=== PATIENT | female | born 1950 | race Caucasian/White ===

== ENCOUNTER 2017-03-20 09:15 | Day surgery (SDC) | payer MEDICARE, BC ==
[2017-03-20] MEDS ORDERED: Dextrose 5%-Lactated Ringers 1,000 ML IV SCH (09:45)
[2017-03-20] MEDS ORDERED: Glycopyrrolate 0.2 MG/ML 2 ML SDV IVPUSH ONE (10:30)
[2017-03-20] MEDS ORDERED: fentaNYL 100 MCG/2 ML SDV ONE (10:48)
[2017-03-20] MEDS ORDERED: Midazolam 1 MG/ML 2 ML SDV ONE (10:48)
[2017-03-20] MEDS ORDERED: Propofol 200 MG/20 ML SDV ONE (10:48)
--- NOTE | 2017-03-23 12:58 | OR ---
DATE OF PROCEDURE: 03/20/2017 PREOPERATIVE DIAGNOSIS: Emerging chronic cough with laparoscopic adjustable gastric band in place. POSTOPERATIVE DIAGNOSIS: Progressive chronic cough associated with laparoscopic gastric band in place, complicated by; 1. Esophageal dilation with retained bile and food in esophagus and ulcerated esophagitis. 2. Mild antral gastritis. OPERATIVE PROCEDURES: Esophagogastroduodenoscopy with; 1. Biopsies of antrum for CLOtest. 2. Biopsies of esophagogastric junction for histologic evaluation. ANESTHESIA: IV sedation. INDICATION FOR PROCEDURE: The patient is status post laparoscopic adjustable gastric band placement recently. She has had some occasional symptoms of reflux, primarily worsening chronic cough. All of the fluid has been removed from the band, and the patient is to undergo an upper endoscopy at this point to evaluate the situation in terms of likely esophageal dilation above the band. Potential risks including bleeding, aspiration of esophageal contents, perforation and such were reviewed, and the patient wishes to proceed. DETAILS OF PROCEDURE: The patient was taken to the operating room and placed in a left lateral decubitus position. IV sedation was administered, after which the upper GI endoscope was passed orally and into the esophagus. Retained bilious material as well as some scattered solid stool was then found in the esophagus, which was otherwise generally quite dilated. This fluid was then evacuated via the endoscope. The patient was also noted to have quite a bit of friability and redness along with edema at the esophagogastric junction. The location of the band appeared to be appropriate, and there was no mechanical obstruction. The imprint of the band was wide open and easily passed with the scope. Apart from that, the retroflex view revealed no complications such as erosions related to the band. There was some mild redness in the prepyloric area. The pyloric channel and duodenum were unremarkable. At this point, biopsies were obtained from the antrum and sent for CLOtest for H. pylori. Multiple biopsies were then obtained from esophagogastric junction for evaluation of the degree of inflammation as well as rule out problems such as Liev esophagus as there was some upward extension of the columnar mucosa above the upper gastric folds. Minimal bleeding from the biopsy sites was seen and the procedure then concluded. The situation was discussed with the patient and postoperatively. In the long-term, the patient would be a significant risk for pulmonary complications related to the band placement and with the band now being deflated, and her tendency to ingest more of a liquid- type diet will also result in a significant weight regain. Due to both of these factors, the best course would likely be removal of band and conversion to a Oscar-en-Y gastric bypass. They have a trip coming up in April and would like to try to delay that treatment if that would be possible. She will be instructed to sleep with the head elevated somewhat as well as avoid solid food intake, especially for 2 hours or so prior to going to bed to try and minimize problems with aspiration of esophageal contents. We will see her back in the first week of May when they get back from the trip and see how she is doing at that point and decide on the treatment options thereafter. Bogdan Corea MD /[id number]
== END 2017-03-20 13:10 | disposition home or self-care (01) ==
LOC: JP.SDS 09:15
PROVIDERS: ATTEND Surgery
DX: K29.50 Unspecified chronic gastritis without bleeding (principal); K22.10 Ulcer of esophagus without bleeding; K22.8 Other specified diseases of esophagus; T18.128A Food in esophagus causing other injury, initial encounter; E66.01 Morbid (severe) obesity due to excess calories; I10 Essential (primary) hypertension; E78.5 Hyperlipidemia, unspecified; F32.9 Major depressive disorder, single episode, unspecified; J45.909 Unspecified asthma, uncomplicated; E55.9 Vitamin D deficiency, unspecified; Z90.710 Acquired absence of both cervix and uterus; Z98.890 Other specified postprocedural states; Z88.1 Allergy status to other antibiotic agents; Z98.84 Bariatric surgery status; Z88.2 Allergy status to sulfonamides; Z88.8 Allergy status to other drugs, medicaments and biological substances; Z68.39 Body mass index [BMI] 39.0-39.9, adult; X58.XXXA Exposure to other specified factors, initial encounter
CPT/HCPCS: 43239; 87081; J2250; J2704; J3010; J7042; 88305; 88312; J3490

== ENCOUNTER 2017-06-08 06:27 | Inpatient (IN) | payer MEDICARE, BC ==
[~2017-06-08 06:27] MED LIST: Scopolamine 1.5 MG Transdermal Patch TOP SCH
[2017-06-08] MEDS ORDERED: Dextrose 5%-Lactated Ringers 1,000 ML IV SCH (06:30)
[2017-06-08] MEDS ORDERED: Acetaminophen 500 MG Tab PO ONE (06:34)
[2017-06-08] MEDS ORDERED: Celecoxib 200 MG Cap PO ONE ×2 (06:37→07:30)
[2017-06-08] MEDS ORDERED: cefOXitin 2 GM in Sodium Chloride 0.9% 50 ML IV ONE (06:37)
[2017-06-08] MEDS ORDERED: Gabapentin 300 MG Cap PO ONE (06:39)
[2017-06-08] MEDS ORDERED: cefOXitin 2 GM Vial ONE (07:04)
[2017-06-08] MEDS ORDERED: Dexamethasone 4 MG/ML SDV ONE (07:12)
[2017-06-08] MEDS ORDERED: Propofol 200 MG/20 ML SDV ONE (07:12)
[2017-06-08] MEDS ORDERED: Neostigmine Methylsulfate 1 MG/ML 5 ML Syringe ONE (07:12)
[2017-06-08] MEDS ORDERED: Ondansetron 4 MG/2 ML SDV ONE (07:12)
[2017-06-08] MEDS ORDERED: Rocuronium 50 MG/5 ML Vial ONE (07:12)
[2017-06-08] MEDS ORDERED: Succinylcholine/Normal Saline 200 MG/10 ML Syringe ONE (07:12)
[2017-06-08] MEDS ORDERED: Lactated Ringers 1,000 ML ONE (07:14)
[2017-06-08] MEDS ORDERED: Ketamine 500 MG/5 ML MDV IV ONE (08:15)
[2017-06-08] MEDS ORDERED: Lidocaine 2% 100 MG/5 ML Syringe IVPUSH ONE (08:15)
[2017-06-08] MEDS: cefOXitin 2 GM in Sodium Chloride 0.9% 50 ML IV ONE ×2 (08:17→10:01)
[2017-06-08] MEDS: Ropivacaine 54 ML, Dexamethasone 8 MG, EPINEPHrine 0.4 MG, Sodium Chloride 0.9% 23.6 ML NERVRT ONE ×8 (08:18→14:17)
[2017-06-08] MEDS ORDERED: fentaNYL 100 MCG/2 ML SDV ONE (09:26)
[2017-06-08] MEDS ORDERED: hydrOXYzine HCl 100 MG/2 ML SDV IM ONE (10:43)
[2017-06-08] MEDS ORDERED: fentaNYL 100 MCG/2 ML SDV IVPUSH ONE (11:13)
[2017-06-08] MEDS ORDERED: diphenhydrAMINE 50 MG/ML SDV IVPUSH PRN (13:00)
[2017-06-08] MEDS ORDERED: Ondansetron 4 MG/2 ML SDV IVPUSH PRN (13:00)
[2017-06-08] MEDS ORDERED: Metoclopramide 10 MG/2 ML SDV IVPUSH PRN (13:00)
[2017-06-08] MEDS ORDERED: Labetalol 20 MG/4 ML Syringe IVPUSH PRN (13:00)
[2017-06-08] MEDS: Dextrose 5%-Lactated Ringers 1,000 ML IV SCH (13:04)
[2017-06-08] MEDS: hydrOXYzine HCl 100 MG/2 ML SDV IM PRN (13:08)
[2017-06-08] MEDS: Lidocaine 0.4%/D5W 2 GM/500 ML BAG IV SCH (13:13)
[2017-06-08] MEDS: cefOXitin 2 GM in Sodium Chloride 0.9% 50 ML IV SCH ×2 (14:05→21:04)
[2017-06-08] MEDS: Acetaminophen Soln 650 MG/20.3 ML UD Cup PO SCH ×2 (15:16→21:04)
[2017-06-08] MEDS: Pantoprazole 40 MG Vial IVPUSH SCH (15:17)
[2017-06-08] MEDS ORDERED: MVI, Adult with Vitamin K 10 ML, Thiamine 200 MG, Chromium/Copper/Mang/Selen/Zn 1 ML in... IV SCH ×4 (16:00)
[2017-06-08] MEDS: Heparin Sodium 5,000 Units/ML Vial SUBCUT SCH (18:07)
[2017-06-08] MEDS: ClonazePAM 0.5 MG Tab PO SCH (21:08)
[2017-06-08] MEDS: diphenhydrAMINE 25 MG/10 ML CUP PO SCH (21:09)
[2017-06-09] MEDS: Dextrose 5%-Lactated Ringers 1,000 ML IV SCH ×2 (00:53→06:58)
[2017-06-09] MEDS: Lidocaine 0.4%/D5W 2 GM/500 ML BAG IV SCH (00:53)
[2017-06-09] MEDS: cefOXitin 2 GM in Sodium Chloride 0.9% 50 ML IV SCH ×2 (02:09→08:15)
[2017-06-09] MEDS: Acetaminophen Soln 650 MG/20.3 ML UD Cup PO SCH ×4 (02:09→21:13)
[2017-06-09] MEDS ORDERED: Iohexol 647 MG/ML 50 ML SDV PO STA (03:56)
[2017-06-09] MEDS: hydrOXYzine HCl 100 MG/2 ML SDV IM PRN ×2 (04:52→11:47)
[2017-06-09] MEDS: Heparin Sodium 5,000 Units/ML Vial SUBCUT SCH ×2 (05:01→17:09)
[2017-06-09] MEDS: Celecoxib 200 MG Cap PO SCH (08:14)
[2017-06-09] MEDS ORDERED: Dextrose 5%-Lactated Ringers 1,000 ML IV SCH (08:30)
--- NOTE | 2017-06-09 08:58 | CR ---
Limited upper GI The patient is status post Oscar-en-Y gastric bypass. There are left upper quadrant drains in place. T here is no extravasation of contrast. The gastric pouch empties readily into a nondilated Oscar limb. No complications are evident. Impression: 1. Status post Oscar-en-Y gastric bypass without evidence for complication.
[2017-06-09] MEDS: SCOPOLAMINE PATCH CHECK TOP SCH (09:14)
--- NOTE | 2017-06-09 11:08 | PCM.SURGPN ---
- General Info Date of Service: 06/09/17 Date of Surgery/Procedure: 06/08/17 POD#: 1 Post-Op Diagnosis: S/P laparoscopic LAP band removal with conversion to Oscar-en- Y Admission Diagnosis/Problem: Abdominal discomfort Functional Status: Reports: Pain Controlled, Tolerating Diet, Ambulating, Urinating - Review of Systems General: Reports: No Symptoms Pulmonary: Reports: No Symptoms Cardiovascular: Reports: No Symptoms Gastrointestinal: Reports: Abdominal Pain, Other (No nausea or vomiting. Passing some gas ) Genitourinary: Reports: No Symptoms Musculoskeletal: Reports: No Symptoms Skin: Reports: No Symptoms Neurological: Reports: No Symptoms Psychiatric: Reports: No Symptoms - Patient Data Vitals - Most Recent: Last Vital Signs Temp 37.1 C 06/09/17 10:48 Pulse 56 L 06/09/17 10:48 Resp 16 06/09/17 10:48 BP 117/73 06/09/17 10:48 Pulse Ox 97 06/09/17 10:48 Weight - Most Recent: 106.957 kg I&O - Last 24 Hours: Intake & Output 06/08/17 06/09/17 06/09/17 22:59 06:59 14:59 Intake Total 1116 2398 262 Output Total 610 1705 1275 Balance 506 693 -1013 Med Orders - Current: Current Medications Acetaminophen (Tylenol) 650 mg PO Q6H [facility] Last Admin: 06/09/17 07:24 Dose: 650 mg Celecoxib (Celebrex) 200 mg PO DAILY@0800 [facility] Last Admin: 06/09/17 08:14 Dose: 200 mg Clonazepam (Klonopin) 0.5 - 1 mg PO BEDTIME [facility] Last Admin: 06/08/17 21:08 Dose: 0.5 mg Cyanocobalamin (Vitamin B12) 1,000 mcg IM ONETIME ONE Stop: 06/10/17 09:01 Diphenhydramine HCl (Benadryl) 25 - 50 mg IVPUSH Q4H PRN PRN Reason: ITCHING Diphenhydramine HCl (Benadryl) 0 mg PO BEDTIME [facility] Last Admin: 06/08/17 21:09 Dose: 25 mg Heparin Sodium (Porcine) (Heparin Sodium) 5,000 units SUBCUT Q12H [facility] Last Admin: 06/09/17 05:01 Dose: 5,000 units Hydroxyzine HCl (Vistaril) 75 - 100 mg IM Q4H PRN PRN Reason: pain Last Admin: 06/09/17 04:52 Dose: 100 mg Dextrose/Lactated Ringer's (Dextrose 5%-Lactated Ringers) 1,000 mls @ 100 mls/ hr IV ASDIRECTED [facility] Multivitamins/Minerals 10 ml/Thiamine HCl 200 mg/ Chromium/Copper/Manganese/ Seleni/Zn 1 ml/ Dextrose/Lactated Ringer's 1,013 mls @ 100 mls/hr IV DAILY@ 1600 [facility] Labetalol HCl (Normodyne) 5 - 15 mg IVPUSH Q1H PRN PRN Reason: SBP over 160 OR DBP over 95 Metoclopramide HCl (Reglan) 10 mg IVPUSH Q6H PRN PRN Reason: NAUSEA NOT CONTROL BY ZOFRAN Miscellaneous Information (Remove Patch) 1 ea TRDERM ONETIME ONE Stop: 06/10/17 10:01 Scopolamine Patch (Check) 1 each TOP DAILY [facility] Stop: 06/10/17 13:01 Last Admin: 06/09/17 09:14 Dose: Not Given Ondansetron HCl (Zofran) 4 mg IVPUSH Q4H PRN PRN Reason: Nausea/Vomiting Last Admin: 06/08/17 14:40 Dose: 4 mg Pantoprazole Sodium (Protonix Iv) 40 mg IVPUSH Q24H [facility] Last Admin: 06/08/17 15:17 Dose: 40 mg Scopolamine (Transderm-Scop) 1.5 mg TOP Q72H [facility] Stop: 06/10/17 10:00 Last Admin: 06/08/17 07:20 Dose: 1.5 mg Discontinued Medications Acetaminophen (Tylenol Extra Strength) 1,000 mg PO ONETIME ONE Stop: 06/08/17 06:35 Last Admin: 06/08/17 07:20 Dose: 1,000 mg Cefoxitin Sodium (Mefoxin) Confirm Administered Dose 2 gm .ROUTE .STK-MED ONE Stop: 06/08/17 07:05 Last Admin: 06/08/17 08:49 Dose: 2 gm Celecoxib (Celebrex) 200 mg PO ONETIME ONE Stop: 06/08/17 06:38 Last Admin: 06/08/17 07:20 Dose: 200 mg Celecoxib (Celebrex) 200 mg PO ONETIME ONE Stop: 06/08/17 07:31 Last Admin: 06/08/17 08:22 Dose: Not Given Ropivacaine 54 ml/Dexamethasone 8 mg/Epinephrine HCl 0.4 mg/ Sodium Chloride 23.6 ml 0 ml NERVRT ONETIME ONE Stop: 06/08/17 08:16 Last Admin: 06/08/17 14:17 Dose: Not Given Dexamethasone (Dexamethasone) Confirm Administered Dose 4 mg .ROUTE .STK-MED ONE Stop: 06/08/17 07:13 Fentanyl (Sublimaze) Confirm Administered Dose 100 mcg .ROUTE .STK-MED ONE Stop: 06/08/17 09:27 Fentanyl (Sublimaze) 100 mcg IVPUSH ONETIME ONE Stop: 06/08/17 11:14 Last Admin: 06/08/17 11:18 Dose: 100 mcg Fentanyl Citrate (Fentanyl) Confirm Administered Dose 500 mcg .ROUTE .STK-MED ONE Stop: 06/08/17 07:15 Gabapentin (Neurontin) 300 mg PO ONETIME ONE Stop: 06/08/17 06:40 Last Admin: 06/08/17 07:24 Dose: Not Given Glycopyrrolate () Confirm Administered Dose 1 mg .ROUTE .STK-MED ONE Stop: 06/08/17 07:13 Hydroxyzine HCl (Vistaril) 100 mg IM ONETIME ONE Stop: 06/08/17 10:44 Last Admin: 06/08/17 10:47 Dose: 100 mg Lidocaine HCl/Dextrose (Lidocaine 2 Gm/D5w 500 Ml) 2 gm in 500 mls @ 30 mls/hr IV .[id number] [facility] PRN Reason: 2 MG/MIN Stop: 06/09/17 10:00 Last Admin: 06/09/17 00:53 Dose: 2 mg/min, 30 mls/hr Ketamine HCl 100 mg/ Sodium (Chloride) 100 mls @ 17.44 mls/hr IV ASDIRECTED [facility] PRN Reason: 5 MCG/KG/MIN Stop: 06/08/17 10:15 Dextrose/Lactated Ringer's (Dextrose 5%-Lactated Ringers) 1,000 mls @ 100 mls/ hr IV ASDIRECTED [facility] Last Admin: 06/08/17 08:21 Dose: 100 mls/hr Cefoxitin Sodium 2 gm/ Sodium (Chloride) 50 mls @ 100 mls/hr IV ONETIME ONE Stop: 06/08/17 07:44 Last Admin: 06/08/17 10:01 Dose: Not Given Lactated Ringer's (Ringers, Lactated) Confirm Administered Dose 1,000 mls @ as directed .ROUTE .STK-MED ONE Stop: 06/08/17 07:15 Dextrose/Lactated Ringer's (Dextrose 5%-Lactated Ringers) 1,000 mls @ 175 mls/ hr IV ASDIRECTED [facility] Last Admin: 06/09/17 06:58 Dose: 100 mls/hr Multivitamins/Minerals 10 ml/Thiamine HCl 200 mg/ Chromium/Copper/Manganese/ Seleni/Zn 1 ml/ Dextrose/Lactated Ringer's 1,013 mls @ 175 mls/hr IV DAILY@ 1600 [facility] Last Admin: 06/08/17 18:07 Dose: 175 mls/hr Cefoxitin Sodium 2 gm/ Sodium (Chloride) 50 mls @ 100 mls/hr IV Q6H [facility] Stop: 06/09/17 08:29 Last Admin: 06/09/17 08:15 Dose: 100 mls/hr Iohexol (Omnipaque-300) 50 ml PO .ASDIRECTED [facility] Stop: 06/09/17 03:57 Last Admin: 06/09/17 04:10 Dose: 50 ml Ketamine HCl (Ketalar) 29 mg IV ONETIME ONE Stop: 06/08/17 08:16 Last Admin: 06/08/17 21:00 Dose: Not Given Lidocaine HCl (Xylocaine 2%) 118 mg IVPUSH ONETIME ONE Stop: 06/08/17 08:16 Last Admin: 06/08/17 21:00 Dose: Not Given Neostigmine Methylsulfate (Neostigmine) Confirm Administered Dose 5 mg .ROUTE .STK-MED ONE Stop: 06/08/17 07:13 Ondansetron HCl (Zofran) Confirm Administered Dose 4 mg .ROUTE .STK-MED ONE Stop: 06/08/17 07:13 Propofol (Diprivan 20 Ml) Confirm Administered Dose 200 mg .ROUTE .STK-MED ONE Stop: 06/08/17 07:13 Rocuronium [place] (Zemuron) Confirm Administered Dose 50 mg .ROUTE .STK-MED ONE Stop: 06/08/17 07:13 Succinylcholine Chloride (Succinylcholine In Ns Pf) Confirm Administered Dose 200 mg .ROUTE .STK-MED ONE Stop: 06/08/17 07:13 - Exam Wound/Incisions: Healing Well General: Alert, Oriented, Cooperative, No Acute Distress Lungs: Clear to Auscultation, Normal Respiratory Effort Cardiovascular: Regular Rate, Regular Rhythm GI/Abdominal Exam: Normal Bowel Sounds (few and mild), Soft, No Distention, Tender Skin: Warm Neurological: No New Focal Deficit Psy/Mental Status: Alert, Normal Affect, Normal Mood - Problem List Review Problem List Initiated/Reviewed/Updated: Yes - My Orders Last 24 Hours: Active Orders 24 hr Category Date Time Status Patient Status [ADT] Routine ADT 06/08/17 12:27 Active Ambulate [RC] ASDIRECTED Care 06/08/17 17:00 Active Cardiac Monitoring Discontinue [RC] Click to Edit Care 06/09/17 09:00 Inactive Communication Order [RC] Q4H Care 06/08/17 15:00 Active Communication Order [RC] ROUTINE Care 06/08/17 12:27 Active Drain Management [RC] ASDIRECTED Care 06/08/17 12:27 Active Head of Bed Elevation [RC] CONTINUOUS Care 06/08/17 12:27 Active Insert Urinary Catheter [OM.PC] Per Unit Routine Care 06/08/17 12:27 Ordered Intake and Output [RC] Q12HR Care 06/08/17 18:00 Active May Shower [RC] ASDIRECTED Care 06/09/17 08:19 Active Notify Provider Intake and Out [RC] ASDIRECTED Care 06/08/17 12:27 Active Notify Provider [RC] PRN Care 06/08/17 12:27 Active Oxygen Therapy [RC] ASDIRECTED Care 06/08/17 12:27 Active Pneumonia Education [RC] UPON Care 06/08/17 12:27 Active RT BiPAP/CPAP [RC] ASDIRECTED Care 06/08/17 12:27 Active RT Incentive Spirometry [RC] Q1HWA Care 06/08/17 12:27 Active Turn, Cough, Deep Breathe [RC] Q1HWA Care 06/08/17 12:27 Active Up to Chair [RC] TIDMEALS Care 06/08/17 17:00 Active Vital Signs [RC] Q4H Care 06/08/17 12:27 Active Consult to Bariatric Services [CONS] Routine Cons 06/08/17 12:27 Active Consult to Marketing Research Coordinator [CONS] Routine Cons 06/08/17 12:27 Active Consult to Pharmacy [CONS] Routine Cons 06/08/17 12:27 Active Respiratory Care Assess and Treatment [CONS] Routine Cons 06/08/17 12:27 Active Bariatric Diet [DIET] Diet 06/08/17 Dinner Active Bariatric Diet [DIET] Diet 06/09/17 Lunch Active Acetaminophen [Tylenol] Med 06/08/17 14:00 Active 650 mg PO Q6H Celecoxib [CeleBREX] Med 06/09/17 08:00 Active 200 mg PO DAILY@0800 ClonazePAM [KlonoPIN] Med 06/08/17 21:00 Active 0.5 - 1 mg PO BEDTIME Cyanocobalamin (Vitamin B12) [Vitamin B12] Med 06/10/17 09:00 Once 1,000 mcg IM ONETIME ONE Dextrose 5%-Lactated Ringers 1,000 ml Med 06/09/17 08:30 Active IV ASDIRECTED Heparin Sodium Med 06/08/17 18:00 Active 5,000 units SUBCUT Q12H Labetalol [Normodyne] Med 06/08/17 13:00 Active 5 - 15 mg IVPUSH Q1H PRN MVI, Adult with Vitamin K [Infuvite Adult] 10 ml Med 06/09/17 16:00 Active Thiamine [Vitamin B-1] 200 mg Chromium/Copper/Christopher/Selen/Zn [Multitrace-5 Concentrate ] 1 ml Dextrose 5%-Lactated Ringers 1,000 ml IV DAILY@1600 Metoclopramide [Reglan] Med 06/08/17 13:00 Active 10 mg IVPUSH Q6H PRN Non-Formulary Medication [NF Drug] Med 06/08/17 13:00 Active 1 each TOP DAILY Ondansetron [Zofran] Med 06/08/17 13:00 Active 4 mg IVPUSH Q4H PRN Pantoprazole [ProTONIX IV] Med 06/08/17 14:00 Active 40 mg IVPUSH Q24H Remove Patch Med 06/10/17 10:00 Once 1 ea TRDERM ONETIME ONE diphenhydrAMINE [Benadryl] Med 06/08/17 21:00 Active 0 mg PO BEDTIME diphenhydrAMINE [Benadryl] Med 06/08/17 13:00 Active 25 - 50 mg IVPUSH Q4H PRN hydrOXYzine HCl [Vistaril] Med 06/08/17 13:00 Active 75 - 100 mg IM Q4H PRN Abdominal Binder [OM.PC] Routine Oth 06/08/17 12:27 Ordered Oral Care [OM.PC] BID Oth 06/08/17 12:30 Ordered Oral Care [OM.PC] BID Oth 06/09/17 12:30 Ordered PT Screening [OM.PC] Routine Oth 06/08/17 12:27 Active Remove Dressing [OM.PC] Routine Oth 06/09/17 08:19 Ordered Sequential Compression Device [OM.PC] Routine Oth 06/08/17 12:27 Ordered Specialty Bed [OM.PC] Routine Oth 06/08/17 12:27 Ordered Resuscitation Status Routine Resus Stat 06/08/17 12:25 Ordered Medication Orders Acetaminophen (Tylenol) 650 mg PO Q6H [facility] Last Admin: 06/09/17 07:24 Dose: 650 mg Admin: 06/09/17 02:09 Dose: 650 mg Admin: 06/08/17 21:04 Dose: 650 mg Admin: 06/08/17 15:16 Dose: 650 mg Celecoxib (Celebrex) 200 mg PO DAILY@0800 [facility] Last Admin: 06/09/17 08:14 Dose: 200 mg Clonazepam (Klonopin) 0.5 - 1 mg PO BEDTIME [facility] Last Admin: 06/08/17 21:08 Dose: 0.5 mg Cyanocobalamin (Vitamin B12) 1,000 mcg IM ONETIME ONE Stop: 06/10/17 09:01 Diphenhydramine HCl (Benadryl) 25 - 50 mg IVPUSH Q4H PRN PRN Reason: ITCHING Diphenhydramine HCl (Benadryl) 0 mg PO BEDTIME [facility] Last Admin: 06/08/17 21:09 Dose: 25 mg Heparin Sodium (Porcine) (Heparin Sodium) 5,000 units SUBCUT Q12H [facility] Last Admin: 06/09/17 05:01 Dose: 5,000 units Admin: 06/08/17 18:07 Dose: 5,000 units Hydroxyzine HCl (Vistaril) 75 - 100 mg IM Q4H PRN PRN Reason: pain Last Admin: 06/09/17 04:52 Dose: 100 mg Admin: 06/08/17 13:08 Dose: 100 mg Dextrose/Lactated Ringer's (Dextrose 5%-Lactated Ringers) 1,000 mls @ 100 mls/ hr IV ASDIRECTED [facility] Multivitamins/Minerals 10 ml/Thiamine HCl 200 mg/ Chromium/Copper/Manganese/ Seleni/Zn 1 ml/ Dextrose/Lactated Ringer's 1,013 mls @ 100 mls/hr IV DAILY@ 1600 [facility] Labetalol HCl (Normodyne) 5 - 15 mg IVPUSH Q1H PRN PRN Reason: SBP over 160 OR DBP over 95 Metoclopramide HCl (Reglan) 10 mg IVPUSH Q6H PRN PRN Reason: NAUSEA NOT CONTROL BY ZOFRAN Miscellaneous Information (Remove Patch) 1 ea TRDERM ONETIME ONE Stop: 06/10/17 10:01 Scopolamine Patch (Check) 1 each TOP DAILY [facility] Stop: 06/10/17 13:01 Last Admin: 06/09/17 09:14 Dose: Ondansetron HCl (Zofran) 4 mg IVPUSH Q4H PRN PRN Reason: Nausea/Vomiting Last Admin: 06/08/17 14:40 Dose: 4 mg Pantoprazole Sodium (Protonix Iv) 40 mg IVPUSH Q24H [facility] Last Admin: 06/08/17 15:17 Dose: 40 mg Scopolamine (Transderm-Scop) 1.5 mg TOP Q72H [facility] Stop: 06/10/17 10:00 Last Admin: 06/08/17 07:20 Dose: 1.5 mg - Plan Plan (Free Text/Narrative):: Sylvia Bell is a 66 year old female with a past medical history of hypothyroidism, restless leg syndrome and hypercholesterolemia with a past surgical history for laparoscopic gastric band placement who presents with weight gain and abdominal pain. She is now POD #1 laparoscopic removal of gastric band with conversion to Oscar-En-Y. She is doing well except for a headache that she currently rates at a 6/10. However, there are no red flag signs at this time. She is tolerating her step 2 diet well without nausea or vomiting. She did have some mild bowel sounds this morning and stated that she passed some gas as well. Her abdominal pain is mild. Will up the dose of tylenol to 1000mg Q6. She had no further concerns or questions at this time. # Abdominal pain- related to her surgery and incisions. She denied any shoulder pain or severe abdominal pain. She states that she does not feel distended. - Continue Tylenol 1000 mg Po Q6hr PRN - Continue ENERGY protocol - Will continue to monitor # Headache- the patient is complaining of a headache. She does feel like her neck is tight. She denies caffeine consumption outside the hospital as well as any chronic headache issues. When she gets headaches in the past it is usually well controlled with tylenol and ibuprofen. Currently she rates her headache at a 6/10 and localized to her occiput. She does NOT describe this the worst headache of her life. She denies any nausea/vomiting, fevers, diplopia or confusion. She is intact neurologically. Most likely this a tension type headache. - Will up her tylenol dose to 1000 mg Q6 - PRN Visteril - PRN Flexeril E.N.E.R.G.Y protocol - D/c lidocaine today - D/c scopolomine patch today - Continue 300mg POD TID gabapentin - Continue Celebrex 200 mg - Continue IV Protonix 40mg Q24hrs - 1000 mcg B12 - Continue Infuvite - Dietary consulted, thank you! Chronic issues: # Restless leg syndrome - Continue home does Klonopin at bedtime # Hypercholesterolemia - continue home dose simvastatin # Hypothyroidism -continue home dose Levothyroxin VTE PPX- 5000 units heparin Q12 hours. Pt advised to continue moving around. Pneumonia PPX- Pt advised to walk around and use incentive spirometry 10 times per hour Code status: full Fluids: 100 ml/hr Diet: Advance pt to step 2 diet Nausea: Zofran Q4hr or Regland Q6hr PRN Dispo: The patient will most likely go home tomorrow if she continues to progress. This chart was scribed for Dr. Corea by: Malachi Ndiaye, MS3 Pg# [phone]
[2017-06-09] MEDS: Pantoprazole 40 MG Vial IVPUSH SCH (13:52)
[2017-06-09] MEDS ORDERED: MVI, Adult with Vitamin K 10 ML, Thiamine 200 MG, Chromium/Copper/Mang/Selen/Zn 1 ML in... IV SCH ×4 (16:00)
--- NOTE | 2017-06-09 16:12 | PN ---
DATE OF SERVICE: 06/09/2017 The patient is postop day #1 from Oscar-en-Y laparoscopic gastric band converted to Oscar-en-Y gastric bypass. Clinically, she has had no major problems. Oral intake has been a little bit slow. Upper GI x-ray looks good. We will go up to step-2 diet without solids today as she is should be someone who probably stays on a liquid diet at least 2 weeks given this as a revisional-type procedure. Otherwise, we will restart her Synthroid and maximize activity, work with pulmonary toilet. Bogdan Corea MD /[id number]
[2017-06-09] MEDS: diphenhydrAMINE 25 MG/10 ML CUP PO SCH (21:17)
[2017-06-09] MEDS: ClonazePAM 0.5 MG Tab PO SCH (21:17)
[2017-06-10] MEDS: Acetaminophen Soln 650 MG/20.3 ML UD Cup PO SCH ×2 (03:49→07:56)
[2017-06-10] MEDS: Heparin Sodium 5,000 Units/ML Vial SUBCUT SCH (05:13)
[2017-06-10] MEDS ORDERED: LEVOTHYROXINE 112 MCG PO SCH (07:30)
[2017-06-10] MEDS ORDERED: Pantoprazole 40 MG Delayed-Release Granules 1 Packet PO SCH (07:30)
--- NOTE | 2017-06-10 07:53 | PCM.DCSUM1 ---
Discharge Summary - Hospital Course Brief History: Sylvia Bell is a 66 year old female with a past medical history of hypothyroidism, restless leg syndrome and hypercholesterolemia with a past surgical history for laparoscopic gastric band placement who presents with weight gain and abdominal pain. She is now POD #2 laparoscopic removal of gastric band with conversion to Oscar-En-Y. - Discharge Data Discharge Date: 06/10/17 Discharge Disposition: Home, Self-Care 01 Condition: Good - Patient Summary/Data Operative Procedure(s) Performed: Gastric band removal with Oscar-en-y conversion Complications: Headache Consults: Consultations 06/08/17 12:27 Consult to Bariatric Services [CONS] Routine Comment: Consult to Business Development Officer [CONS] Routine Comment: Physician Instructions: Quantity: Consult to Pharmacy [CONS] Routine Comment: Physician Instructions: Quantity: Respiratory Care Assess and Treatment [CONS] Routine Comment: Physician Instructions: Post-Op Pneumonia Prevention - Patient Instructions Diet: Drink 8-10+ Glasses/Day Diet, Other: Step 2 Gastric Bypass Diet with NO CEREAL until Thursday-June 23, 2017 Activity: No Lifting Over 10 Pounds (for 2 weeks ) Activity, Other: Walk 6 times inside your home Driving: Do Not Drive (for 1 week ) Showering/Bathing: May Shower Wound/Incision Care: Keep Operative Site/Wound Site Clean and Dry Notify Provider of: Fever, Increased Pain, Nausea and/or Vomiting Other/Special Instructions: Use incentive inspirometer 10 times every hour while awake for 1 week. Write down everything you eat and drink and bring to clinic appointment - Discharge Plan Prescriptions/Med Rec: Magnesium Hydroxide [Milk of Magnesia] 30 ml PO DAILY PRN #2 ml PRN Reason: Constipation Ondansetron [Zofran ODT] 4 mg PO Q6H PRN #30 tab.dis PRN Reason: Nausea Home Medications: Home Meds Acetaminophen [Tylenol Extra Strength] 1,000 mg PO Q6HR PRN 03/19/17 [History] ClonazePAM [KlonoPIN] 0.5 - 1 mg PO BEDTIME PRN 03/19/17 [History] Doxylamine Succinate [Unisom] 25 mg PO BEDTIME PRN 03/19/17 [History] Ezetimibe/Simvastatin [Vytorin 10-20 MG] 1 tab PO DAILY 03/19/17 [History] Fluticasone Propionate [Flonase] 2 sprays BINA ASDIRECTED PRN 03/19/17 [History] Levothyroxine Sodium [Synthroid] 112 mcg PO DAILY 03/19/17 [History] Phenazopyridine HCl [Pyridium] 200 mg PO TID PRN 03/19/17 [History] Acyclovir [Zovirax 5% Oint] 1 applic TOP TID PRN 06/05/17 [History] Simvastatin [Zocor] 20 mg PO DAILY 06/05/17 [History] Acetaminophen [Tylenol] 650 mg PO Q6H cup 06/10/17 [Rx] Celecoxib [CeleBREX] 200 mg PO DAILY@0800 cap 06/10/17 [Rx] Magnesium Hydroxide [Milk of Magnesia] 30 ml PO DAILY PRN #2 ml 06/10/17 [Rx] Ondansetron [Zofran ODT] 4 mg PO Q6H PRN #30 tab.dis 06/10/17 [Rx] Referrals: Jenna Neil PA-C [Physician Cloth Grader Supervisor] - 06/18/17 10:00 am - Discharge Summary/Plan Comment DC Time >30 min.: Yes Discharge Summary/Plan Comment: Sylvia Bell is a 66 year old female with a past medical history of hypothyroidism, restless leg syndrome and hypercholesterolemia with a past surgical history for laparoscopic gastric band placement who presents with weight gain and abdominal pain. She is now POD #2 laparoscopic removal of gastric band with conversion to Oscar-En-Y. Her hospital stay was uneventful except for a headache that she currently rates at a 2/10 that started yesterday. However, there were no red flag signs at this time. Her headache is controlled with tylenol. She is tolerating her step 2 diet well without nausea or vomiting. She had no further concerns or questions at this time. - Patient Data Vitals - Most Recent: Last Vital Signs Temp 36.9 C 06/10/17 07:07 Pulse 60 06/10/17 07:07 Resp 16 06/10/17 07:07 BP 129/65 06/10/17 07:07 Pulse Ox 93 L 06/10/17 07:07 Weight - Most Recent: 106.957 kg I&O - Last 24 hours: Intake & Output 06/09/17 06/10/17 06/10/17 22:59 06:59 14:59 Intake Total 1465 Output Total 600 300 90 Balance 865 -300 -90 Med Orders - Current: Current Medications Acetaminophen (Tylenol) 650 mg PO Q6H [facility] Last Admin: 06/10/17 03:49 Dose: 650 mg Celecoxib (Celebrex) 200 mg PO DAILY@0800 [facility] Last Admin: 06/09/17 08:14 Dose: 200 mg Clonazepam (Klonopin) 0.5 - 1 mg PO BEDTIME [facility] Last Admin: 06/09/17 21:17 Dose: 1 mg Cyanocobalamin (Vitamin B12) 1,000 mcg IM ONETIME ONE Stop: 06/10/17 09:01 Diphenhydramine HCl (Benadryl) 25 - 50 mg IVPUSH Q4H PRN PRN Reason: ITCHING Diphenhydramine HCl (Benadryl) 0 mg PO BEDTIME [facility] Last Admin: 06/09/17 21:17 Dose: 25 mg Heparin Sodium (Porcine) (Heparin Sodium) 5,000 units SUBCUT Q12H [facility] Last Admin: 06/10/17 05:13 Dose: 5,000 units Hydroxyzine HCl (Vistaril) 75 - 100 mg IM Q4H PRN PRN Reason: pain Last Admin: 06/09/17 11:47 Dose: 100 mg Dextrose/Lactated Ringer's (Dextrose 5%-Lactated Ringers) 1,000 mls @ 100 mls/ hr IV ASDIRECTED [facility] Multivitamins/Minerals 10 ml/Thiamine HCl 200 mg/ Chromium/Copper/Manganese/ Seleni/Zn 1 ml/ Dextrose/Lactated Ringer's 1,013 mls @ 100 mls/hr IV DAILY@ 1600 [facility] Last Admin: 06/09/17 17:09 Dose: 100 mls/hr Labetalol HCl (Normodyne) 5 - 15 mg IVPUSH Q1H PRN PRN Reason: SBP over 160 OR DBP over 95 Levothyroxine Sodium (Levothyroxine) 112 mcg PO ACBREAKFAST [facility] Metoclopramide HCl (Reglan) 10 mg IVPUSH Q6H PRN PRN Reason: NAUSEA NOT CONTROL BY ZOFRAN Miscellaneous Information (Remove Patch) 1 ea TRDERM ONETIME ONE Stop: 06/10/17 10:01 Scopolamine Patch (Check) 1 each TOP DAILY [facility] Stop: 06/10/17 13:01 Last Admin: 06/09/17 09:14 Dose: Not Given Ondansetron HCl (Zofran) 4 mg IVPUSH Q4H PRN PRN Reason: Nausea/Vomiting Last Admin: 06/08/17 14:40 Dose: 4 mg Pantoprazole Sodium (Protonix Granules) 40 mg PO ACBREAKFAST [facility] Scopolamine (Transderm-Scop) 1.5 mg TOP Q72H [facility] Stop: 06/10/17 10:00 Last Admin: 06/08/17 07:20 Dose: 1.5 mg Discontinued Medications Acetaminophen (Tylenol Extra Strength) 1,000 mg PO ONETIME ONE Stop: 06/08/17 06:35 Last Admin: 06/08/17 07:20 Dose: 1,000 mg Cefoxitin Sodium (Mefoxin) Confirm Administered Dose 2 gm .ROUTE .STK-MED ONE Stop: 06/08/17 07:05 Last Admin: 06/08/17 08:49 Dose: 2 gm Celecoxib (Celebrex) 200 mg PO ONETIME ONE Stop: 06/08/17 06:38 Last Admin: 06/08/17 07:20 Dose: 200 mg Celecoxib (Celebrex) 200 mg PO ONETIME ONE Stop: 06/08/17 07:31 Last Admin: 06/08/17 08:22 Dose: Not Given Ropivacaine 54 ml/Dexamethasone 8 mg/Epinephrine HCl 0.4 mg/ Sodium Chloride 23.6 ml 0 ml NERVRT ONETIME ONE Stop: 06/08/17 08:16 Last Admin: 06/08/17 14:17 Dose: Not Given Dexamethasone (Dexamethasone) Confirm Administered Dose 4 mg .ROUTE .STK-MED ONE Stop: 06/08/17 07:13 Fentanyl (Sublimaze) Confirm Administered Dose 100 mcg .ROUTE .STK-MED ONE Stop: 06/08/17 09:27 Fentanyl (Sublimaze) 100 mcg IVPUSH ONETIME ONE Stop: 06/08/17 11:14 Last Admin: 06/08/17 11:18 Dose: 100 mcg Fentanyl Citrate (Fentanyl) Confirm Administered Dose 500 mcg .ROUTE .STK-MED ONE Stop: 06/08/17 07:15 Gabapentin (Neurontin) 300 mg PO ONETIME ONE Stop: 06/08/17 06:40 Last Admin: 06/08/17 07:24 Dose: Not Given Glycopyrrolate () Confirm Administered Dose 1 mg .ROUTE .STK-MED ONE Stop: 06/08/17 07:13 Hydroxyzine HCl (Vistaril) 100 mg IM ONETIME ONE Stop: 06/08/17 10:44 Last Admin: 06/08/17 10:47 Dose: 100 mg Lidocaine HCl/Dextrose (Lidocaine 2 Gm/D5w 500 Ml) 2 gm in 500 mls @ 30 mls/hr IV .[id number] [facility] PRN Reason: 2 MG/MIN Stop: 06/09/17 10:00 Last Admin: 06/09/17 00:53 Dose: 2 mg/min, 30 mls/hr Ketamine HCl 100 mg/ Sodium (Chloride) 100 mls @ 17.44 mls/hr IV ASDIRECTED [facility] PRN Reason: 5 MCG/KG/MIN Stop: 06/08/17 10:15 Dextrose/Lactated Ringer's (Dextrose 5%-Lactated Ringers) 1,000 mls @ 100 mls/ hr IV ASDIRECTED [facility] Last Admin: 06/08/17 08:21 Dose: 100 mls/hr Cefoxitin Sodium 2 gm/ Sodium (Chloride) 50 mls @ 100 mls/hr IV ONETIME ONE Stop: 06/08/17 07:44 Last Admin: 06/08/17 10:01 Dose: Not Given Lactated Ringer's (Ringers, Lactated) Confirm Administered Dose 1,000 mls @ as directed .ROUTE .[facility] ONE Stop: 06/08/17 07:15 Dextrose/Lactated Ringer's (Dextrose 5%-Lactated Ringers) 1,000 mls @ 175 mls/ hr IV ASDIRECTED [facility] Last Admin: 06/09/17 06:58 Dose: 100 mls/hr Multivitamins/Minerals 10 ml/Thiamine HCl 200 mg/ Chromium/Copper/Manganese/ Seleni/Zn 1 ml/ Dextrose/Lactated Ringer's 1,013 mls @ 175 mls/hr IV DAILY@ 1600 [facility] Last Admin: 06/08/17 18:07 Dose: 175 mls/hr Cefoxitin Sodium 2 gm/ Sodium (Chloride) 50 mls @ 100 mls/hr IV Q6H [facility] Stop: 06/09/17 08:29 Last Admin: 06/09/17 08:15 Dose: 100 mls/hr Iohexol (Omnipaque-300) 50 ml PO .ASDIRECTED STA Stop: 06/09/17 03:57 Last Admin: 06/09/17 04:10 Dose: 50 ml Ketamine HCl (Ketalar) 29 mg IV ONETIME ONE Stop: 06/08/17 08:16 Last Admin: 06/08/17 21:00 Dose: Not Given Lidocaine HCl (Xylocaine 2%) 118 mg IVPUSH ONETIME ONE Stop: 06/08/17 08:16 Last Admin: 06/08/17 21:00 Dose: Not Given Neostigmine Methylsulfate (Neostigmine) Confirm Administered Dose 5 mg .ROUTE .STK-MED ONE Stop: 06/08/17 07:13 Ondansetron HCl (Zofran) Confirm Administered Dose 4 mg .ROUTE .STK-MED ONE Stop: 06/08/17 07:13 Pantoprazole Sodium (Protonix Iv) 40 mg IVPUSH Q24H [facility] Last Admin: 06/09/17 13:52 Dose: 40 mg Propofol (Diprivan 20 Ml) Confirm Administered Dose 200 mg .ROUTE .STK-MED ONE Stop: 06/08/17 07:13 Rocuronium Cheney (Zemuron) Confirm Administered Dose 50 mg .ROUTE .STK-MED ONE Stop: 06/08/17 07:13 Succinylcholine Chloride (Succinylcholine In Ns Pf) Confirm Administered Dose 200 mg .ROUTE .STK-MED ONE Stop: 06/08/17 07:13 *Q Meaningful Use (DIS) - VTE *Q VTE Criteria *Q: - Stroke *Q Stroke Criteria *Q: - AMI *Q AMI Criteria *Q:
[2017-06-10] MEDS: Celecoxib 200 MG Cap PO SCH (07:56)
[2017-06-10] MEDS: SCOPOLAMINE PATCH CHECK TOP SCH (08:28)
[2017-06-10] MEDS ORDERED: Cyanocobalamin (Vitamin B12) 1,000 MCG/ML SDV IM ONE (09:00)
--- NOTE | 2017-06-15 14:48 | OR ---
DATE OF PROCEDURE: 06/08/2017 PREOPERATIVE DIAGNOSIS: Intolerance to laparoscopic adjustable gastric band. POSTOPERATIVE DIAGNOSES: 1. Intolerance to laparoscopic adjustable gastric band. 2. Marked hepatomegaly. OPERATIVE PROCEDURES: Diagnostic laparoscopy with: 1. Laparoscopic Oscar-en-Y gastric bypass along with gastroenterostomy (39748). 2. Scar-Cut needle liver biopsy (77038). 3. Removal of laparoscopic adjustable gastric band system. ANESTHESIA: General. ASSISTANTS: Malachi Ndiaye MS-3, and Jenna Neil PA-C. INDICATIONS FOR PROCEDURE: This is a 66-year-old presenting with intolerance to laparoscopic adjustable gastric band. After preoperative evaluation and discussion, she wished to proceed with removal of band system along with conversion of gastric bypass. Potential risks including bleeding, infection, leaks from various GI tract closures, problems with bowel obstruction over time, as well as the possibility of cardiopulmonary, septic, or hemorrhagic complications leading to were discussed, and the patient wishes to proceed. DETAILS OF PROCEDURE: The patient was taken to the operating room and placed in the supine position. After general endotracheal anesthesia was induced, she was converted to a lithotomy position and an orogastric tube was initially placed to decompress the stomach, which was subsequently removed. The abdomen was then prepped and draped. At 15 cm inferior and 5 cm left of the xiphoid process, a transverse incision was made, and the peritoneal cavity entered under direct vision with an Optiview trocar. The peritoneal cavity was inflated to 15 mmHg pressure with CO2 and the laparoscope reinserted. No underlying trocar insertion site injuries were seen. Following this, 5 additional trocars were placed across upper and mid abdomen and general exploration was undertaken. The patient was noted to have marked hepatomegaly with the liver volume being roughly 2 to 3 times normal and liver grossly fatty infiltrated. Scar-Cut needle biopsies were obtained from the left lobe of the liver. Minimal bleeding from the biopsy site was controlled with electrocautery. At this point, under direct vision of the depth and positioning of the needle, bilateral subcostal transversus abdominis plane blocks were placed using the standard solution. At this point, the band port tubing was divided just inside the abdomen. This allowed untangling of the port tubing to some adhesions. Some adhesions between the band and the liver were then taken down, allowing the liver to be retracted anteriorly and the band was freed up of electrocautery. It was then divided and removed from the point where the band circled the gastric cardia. The band was then uncoupled and the components then removed. The pouch was then constructed with a series of black MICHELLE loads, going more or less across the imprint of the band and along the gastric cardia. This appeared to provide a fairly nice small stomach. Some of the fibrous material along the course of the band had been removed with the aid of electrocautery and blunt dissection. Upon completion of the pouch, staple and staple lines appeared to be intact. The anvil of a 25-mm EEA stapler was then attached to [place] sump type tube, the latter was brought down through the mouth and taken out through a small opening in the gastric pouch, allowing the anvil likewise to be pulled down to within the new gastric pouch. Attention was then taken to formation of the Oscar limb. The small bowel was identified at the ligament of Treitz and traced out 150 cm distal to that point and was divided with the MICHELLE vascular load. The small bowel was then traced out additional 200 cm, where the side-to- side enteroenterostomy was accomplished with internal firing of the Endo-MICHELLE 60-mm stapler. Common opening was then closed transversely with the same stapler, angles anastomosed, and mesenteric defect approximated with some 0 Ethibond stitch along with fibrin sealant. The Oscar limb was then from the mesentery for a few centimeters allowing antecolic position of the Oscar-limb at the level of the gastric pouch without tension. The divided end of the Oscar limb was then opened and the main body of the EEA stapler was passed several centimeters into the lumen of the small bowel, brought up the anvil and united with it, thus creating the gastrojejunostomy. Upon removal of the stapler, double donuts of mucosa were noted within it. Small bowel was closed off with a vascular staple line. Gastrojejunostomy was reinforced with some 3-0 Vicryl seromuscular stitch along with fibrin sealant. Leak test was accomplished with injection of 120 mL of air in the gastric pouch, while submerged with a cefoxitin-containing saline solution. Single Jd-Arnold drain was taken out the left lateral trocar site and positioned adjacent to the gastrojejunostomy and from there into the splenic fossa. The trocars were sequentially removed, and the peritoneal cavity deflated. The incision was closed with 4-0 Vicryl stitch, which was also used to fix the drain. The patient was taken to the recovery room in a satisfactory condition. Physician internal medicine physician assistant, Jenna Neil, played an essential role in assisting in this case, helping to position the patient, retract structures as needed, as well as suturing and cutting sutures when indicated. Her presence improved patient safety and decreased the operative time. Bogdan Corea MD /[id number]
== END 2017-06-10 11:43 | disposition home or self-care (01) | DRG 327 ==
LOC: JP.SDS 06:27 → JP.SDSSCHI 06:27 → EDSTATUS 11:00 → JP.2SS 11:00
PROVIDERS: ADMIT Surgery; ATTEND Surgery
PROC: 0D164ZA Bypass Stomach to Jejunum, Percutaneous Endoscopic Approach (ICD-10-PCS; principal; 2017-06-08)
PROC: 0DP64CZ Removal of Extraluminal Device from Stomach, Percutaneous Endoscopic Approach (ICD-10-PCS; 2017-06-08)
PROC: 0FB24ZX Excision of Left Lobe Liver, Percutaneous Endoscopic Approach, Diagnostic (ICD-10-PCS; 2017-06-08)
PROC: 3E0T3BZ Introduction of Anesthetic Agent into Peripheral Nerves and Plexi, Percutaneous Approach (ICD-10-PCS; 2017-06-08)
DX: R10.9 Unspecified abdominal pain (principal); K95.09 Other complications of gastric band procedure; R63.5 Abnormal weight gain; Z68.39 Body mass index [BMI] 39.0-39.9, adult; R16.0 Hepatomegaly, not elsewhere classified; Z98.84 Bariatric surgery status; Z98.0 Intestinal bypass and anastomosis status; Y84.8 Other medical procedures as the cause of abnormal reaction of the patient, or of later complication, without mention of misadventure at the time of the procedure; K76.0 Fatty (change of) liver, not elsewhere classified; R51 Headache; G25.81 Restless legs syndrome; Z88.1 Allergy status to other antibiotic agents; Z88.2 Allergy status to sulfonamides; Z88.8 Allergy status to other drugs, medicaments and biological substances
CPT/HCPCS: 36415; 74240; 74240-26; 82962; 86850; 86900; 86901; 88300; 88307; 88313; 94762; A9270-GY; C9113; J0171; J0694; J1100; J1644; J2001; J2405; J2704; J2795; J3010; J3410; J3411; J3420; J7030; J7042; J7050; J7120; Q9967

== ENCOUNTER 2017-07-07 09:46 | Day surgery (SDC) | payer MEDICARE, BC ==
[2017-07-07] MEDS ORDERED: Propofol 200 MG/20 ML SDV ONE (10:10)
[2017-07-07] MEDS ORDERED: fentaNYL 100 MCG/2 ML SDV ONE (10:10)
[2017-07-07] MEDS ORDERED: Midazolam 1 MG/ML 2 ML SDV ONE (10:10)
[2017-07-07] MEDS ORDERED: Cyanocobalamin (Vitamin B12) 1,000 MCG/ML SDV IM ONE (10:30)
[2017-07-07] MEDS ORDERED: Lactated Ringers 1,000 ML IV ONE (10:30)
[2017-07-07] MEDS ORDERED: MVI, Adult with Vitamin K 10 ML, Thiamine 100 MG, Chromium/Copper/Mang/Selen/Zn 1 ML in... IV ONE ×4 (11:00)
[2017-07-07] MEDS ORDERED: Glycopyrrolate 0.2 MG/ML 2 ML SDV IVPUSH ONE (11:00)
--- NOTE | 2017-07-11 21:06 | OR ---
DATE OF PROCEDURE: 07/07/2017 PREOPERATIVE DIAGNOSIS: Probable stricture at the gastrojejunostomy. POSTOPERATIVE DIAGNOSIS: Stricture of gastrojejunostomy. PROCEDURE: Upper GI endoscopy with dilation of gastrojejunostomy (66315). ANESTHESIA: IV sedation. INDICATION FOR PROCEDURE: She is status post conversion of the band to Oscar-en-Y gastric bypass status on 06/08/2017 and presents now with symptoms of stricturing at her gastrojejunostomy. Plan is to proceed with upper GI endoscopy with dilation as indicated. Potential risks including bleeding and perforation were discussed, and the patient wishes to proceed. DETAILS OF PROCEDURE: The patient was taken to the operating room and placed in a left lateral decubitus position. IV sedation was administered, after which the upper GI endoscope was passed orally through the length of the esophagus and into the gastric pouch. No retained food or fluid was noted. The patient was noted to have a fairly tight stricture of the gastrojejunostomy. Bard gastrointestinal balloon catheter was then centered across the anastomosis and inflated to 36-Romansh size. This was held in position for 1 minute, after which the balloon catheter was deflated and withdrawn. The scope then easily passed through the anastomosis. No complications were noted. The patient was taken to the recovery room in satisfactory condition. Bogdan Corea MD /[id number]
== END 2017-07-07 14:01 | disposition home or self-care (01) ==
LOC: JP.SDS 09:46
PROVIDERS: ATTEND Surgery
DX: K95.89 Other complications of other bariatric procedure (principal); F32.9 Major depressive disorder, single episode, unspecified; Z88.1 Allergy status to other antibiotic agents; Z88.2 Allergy status to sulfonamides; Z88.8 Allergy status to other drugs, medicaments and biological substances
CPT/HCPCS: J2250; J2704; J3010; J3411; J3420; J3490; J7120

== ENCOUNTER 2017-07-21 05:24 | Day surgery (SDC) | payer MEDICARE, BC ==
[2017-07-21] MEDS ORDERED: Lactated Ringers 1,000 ML IV SCH (06:15)
[2017-07-21] MEDS ORDERED: Propofol 200 MG/20 ML SDV ONE (06:23)
[2017-07-21] MEDS ORDERED: fentaNYL 100 MCG/2 ML SDV ONE (06:23)
[2017-07-21] MEDS ORDERED: Midazolam 1 MG/ML 2 ML SDV ONE (06:23)
[2017-07-21] MEDS ORDERED: Cyanocobalamin (Vitamin B12) 1,000 MCG/ML SDV IM ONE ×2 (06:28→08:30)
[2017-07-21] MEDS ORDERED: Glycopyrrolate 0.2 MG/ML 2 ML SDV IVPUSH ONE (07:15)
[2017-07-21] MEDS ORDERED: [UNRECOGNIZED DRUG - OTHER] IV ONE ×4 (08:30)
[2017-07-21] MEDS ORDERED: CHROMIUM IV ONE ×4 (08:30)
[2017-07-21] MEDS ORDERED: COPPER IV ONE ×4 (08:30)
[2017-07-21] MEDS ORDERED: MANG IV ONE ×4 (08:30)
[2017-07-21] MEDS ORDERED: SELEN IV ONE ×4 (08:30)
[2017-07-21] MEDS ORDERED: MVI IV ONE ×4 (08:30)
[2017-07-21] MEDS ORDERED: VITAMIN K IV ONE ×4 (08:30)
--- NOTE | 2017-07-22 17:43 | OR ---
DATE OF PROCEDURE: 07/21/2017 PREOPERATIVE DIAGNOSIS: Probable strictured gastrojejunostomy. POSTOPERATIVE DIAGNOSIS: Strictured gastrojejunostomy. OPERATIVE PROCEDURE: Upper GI endoscopy with dilation of gastrojejunostomy (03804). ANESTHESIA: IV sedation. INDICATION FOR PROCEDURE: The patient recently is status post insertion of a lap band status to a Oscar-en-Y gastric bypass, is presenting with some symptoms suggestive of stricturing at her gastrojejunostomy. Plan is to proceed with an upper GI endoscopy with dilation as indicated. Potential risks including bleeding and perforation were discussed, and the patient wishes to proceed. DETAILS OF PROCEDURE: The patient was taken to the operating room and placed in a left lateral decubitus position. IV sedation was administered, after which the upper GI endoscope was passed orally through the length of the esophagus and into the gastric pouch. The patient had no retained fluid or food. There was a fairly tight stricture, but not much in the way of mucosal inflammation. A Bard gastrointestinal balloon catheter was centered across the anastomosis and inflated to 36-Spanish size. This was held in position for 1 minute, after which the balloon catheter was deflated and withdrawn. The scope could easily be passed through the anastomosis. No complications were noted, and the procedure was then concluded. The patient was taken to the recovery room in a satisfactory condition. Bogdan Corea MD /[id number]
== END 2017-07-21 10:09 | disposition home or self-care (01) ==
LOC: JP.SDS 05:24
PROVIDERS: ATTEND Surgery
DX: K95.89 Other complications of other bariatric procedure (principal); J45.909 Unspecified asthma, uncomplicated; K21.9 Gastro-esophageal reflux disease without esophagitis; F32.9 Major depressive disorder, single episode, unspecified; Z88.1 Allergy status to other antibiotic agents; Z88.2 Allergy status to sulfonamides; Z88.8 Allergy status to other drugs, medicaments and biological substances
CPT/HCPCS: 43245; J2250; J2704; J3010; J3411; J3420; J7120; J3490

== ENCOUNTER 2017-08-06 07:07 | Day surgery (SDC) | payer MEDICARE, BC ==
[2017-08-06] MEDS ORDERED: Cyanocobalamin (Vitamin B12) 1,000 MCG/ML SDV IM ONE (08:00)
[2017-08-06] MEDS ORDERED: Lactated Ringers 1,000 ML IV SCH (08:00)
[2017-08-06] MEDS ORDERED: Glycopyrrolate 0.2 MG/ML 2 ML SDV IVPUSH ONE (08:45)
[2017-08-06] MEDS ORDERED: MVI, Adult with Vitamin K 10 ML, Thiamine 100 MG, Chromium/Copper/Mang/Selen/Zn 1 ML in... IV ONE ×4 (09:00)
[2017-08-06] MEDS ORDERED: Propofol 200 MG/20 ML SDV ONE (11:22)
[2017-08-06] MEDS ORDERED: fentaNYL 100 MCG/2 ML SDV ONE (11:22)
[2017-08-06] MEDS ORDERED: Midazolam 1 MG/ML 2 ML SDV ONE (11:22)
--- NOTE | 2017-08-10 08:49 | OR ---
DATE OF PROCEDURE: 08/06/2017 PREOPERATIVE DIAGNOSIS: Probable stricture gastrojejunostomy. POSTOPERATIVE DIAGNOSIS: Tight stricture at gastrojejunostomy. OPERATIVE PROCEDURE: Upper gastrointestinal endoscopy with dilation of gastrojejunostomy ([id number]). ANESTHESIA: IV sedation. INDICATIONS FOR PROCEDURE: This is a 66-year-old status post band conversion to Oscar-en-Y gastric bypass on 06/04/2017. She did have dilation on 07/21/2017 and the patient presents now with symptoms suggestive of stricturing once again at her gastrojejunostomy. The plan is to proceed with upper GI endoscopy with dilation as indicated. Potential risks including bleeding and perforation were discussed, and the patient wishes to proceed. DESCRIPTION OF PROCEDURE: The patient was taken to the operating room and placed in a left lateral decubitus position. IV sedation was administered after which the upper GI endoscope was passed orally through the length of the esophagus and into the area of the gastrojejunostomy. This was actually quite tightly strictured to this point with the diameter measuring perhaps only around 3 mm. A Bard gastrointestinal balloon catheter was then centered across the anastomosis and inflated to 36-Faroese size. This was held in position for 1 minute, after which the balloon catheter was deflated and withdrawn. The scope was easily then passed through the anastomosis. No complications were noted. The scope was withdrawn and the procedure was concluded. The patient was taken to the recovery room in satisfactory condition. Bogdan Corea MD /[id number]
== END 2017-08-06 13:11 | disposition home or self-care (01) ==
LOC: JP.SDS 07:07
PROVIDERS: ATTEND Surgery
DX: K91.89 Other postprocedural complications and disorders of digestive system (principal); J45.909 Unspecified asthma, uncomplicated; K21.9 Gastro-esophageal reflux disease without esophagitis; E66.9 Obesity, unspecified; Z98.84 Bariatric surgery status
CPT/HCPCS: 43245; J2250; J2704; J3010; J3411; J3420; J7120

== ENCOUNTER 2017-08-17 07:01 | Day surgery (SDC) | payer MEDICARE, BC ==
[2017-08-17] MEDS ORDERED: Lactated Ringers 1,000 ML IV SCH (07:45)
[2017-08-17] MEDS ORDERED: Cyanocobalamin (Vitamin B12) 1,000 MCG/ML SDV IM ONE (08:00)
[2017-08-17] MEDS ORDERED: Glycopyrrolate 0.2 MG/ML 2 ML SDV IVPUSH ONE (08:15)
[2017-08-17] MEDS ORDERED: fentaNYL 100 MCG/2 ML SDV ONE (08:51)
[2017-08-17] MEDS ORDERED: Propofol 200 MG/20 ML SDV ONE (08:51)
[2017-08-17] MEDS ORDERED: Midazolam 1 MG/ML 2 ML SDV ONE (08:51)
[2017-08-17] MEDS ORDERED: MVI, Adult with Vitamin K 10 ML, Thiamine 100 MG, Chromium/Copper/Mang/Selen/Zn 1 ML in... IV ONE ×4 (09:00)
[2017-08-17] MEDS ORDERED: Thiamine 100 MG in Sodium Chloride 0.9% 100 ML IV ONE (10:15)
--- NOTE | 2017-08-26 17:31 | OR ---
DATE OF PROCEDURE: 08/17/2017 PREOPERATIVE DIAGNOSIS: Probable stricture gastrojejunostomy. POSTOPERATIVE DIAGNOSIS: Probable stricture gastrojejunostomy. PROCEDURE PERFORMED: Upper GI endoscopy with dilation gastrojejunostomy ([id number]). ANESTHESIA: IV sedation. INDICATIONS FOR PROCEDURE: This is a 66-year-old status post recent conversion from a lap band to Oscar-en-Y status, presenting with some recurrent stricturing at the gastrojejunostomy. Plan is to proceed with upper GI endoscopy with dilation as indicated. Potential risks including bleeding and perforation were discussed, and the patient wishes to proceed. DETAILS OF PROCEDURE: The patient was taken to the operating room, placed in a left lateral decubitus position. IV sedation was administered, after which the upper GI endoscope was passed orally through the length of the esophagus and into the gastric pouch. No retained food or fluid was noted. The patient was noted to have a quite tight stricture of the gastrojejunostomy but otherwise without significant mucosal inflammation. Bard gastrointestinal catheter was centered across the anastomosis with fluoroscopic surveillance and inflated to 36-Tanzanian size. This was held in position for 1 minute after which the catheter was deflated, the scope easily passed through the anastomosis. No complications were noted and the procedure concluded. The patient was taken to the recovery room in satisfactory condition. Bogdan Corea MD /[id number]
== END 2017-08-17 11:14 | disposition home or self-care (01) ==
LOC: JP.SDS 07:01
PROVIDERS: ATTEND Surgery
DX: K95.89 Other complications of other bariatric procedure (principal); J45.909 Unspecified asthma, uncomplicated; K21.9 Gastro-esophageal reflux disease without esophagitis; F32.9 Major depressive disorder, single episode, unspecified; G25.81 Restless legs syndrome; E66.01 Morbid (severe) obesity due to excess calories; Z68.34 Body mass index [BMI] 34.0-34.9, adult; Z98.84 Bariatric surgery status; Z88.1 Allergy status to other antibiotic agents; Z88.2 Allergy status to sulfonamides; Z88.8 Allergy status to other drugs, medicaments and biological substances
CPT/HCPCS: 43245; J2250; J2704; J3010; J3411; J3420; J7030; J7120; J3490

== ENCOUNTER 2017-09-08 09:22 | Day surgery (SDC) | payer MEDICARE, BC ==
[2017-09-08] MEDS ORDERED: Propofol 200 MG/20 ML SDV ONE (09:29)
[2017-09-08] MEDS ORDERED: fentaNYL 100 MCG/2 ML SDV ONE (09:29)
[2017-09-08] MEDS ORDERED: Lactated Ringers 1,000 ML IV ONE (09:30)
[2017-09-08] MEDS ORDERED: Midazolam 1 MG/ML 2 ML SDV ONE (09:30)
[2017-09-08] MEDS ORDERED: Cyanocobalamin (Vitamin B12) 1,000 MCG/ML SDV IM ONE (10:30)
[2017-09-08] MEDS ORDERED: MVI, Adult with Vitamin K 10 ML, Thiamine 100 MG, Chromium/Copper/Mang/Selen/Zn 1 ML in... IV ONE ×4 (10:30)
[2017-09-08] MEDS ORDERED: Glycopyrrolate 0.2 MG/ML 2 ML SDV IVPUSH ONE (10:30)
--- NOTE | 2017-09-15 11:08 | OR ---
DATE OF PROCEDURE: 09/08/2017 PREOPERATIVE DIAGNOSIS: Stricture at gastrojejunostomy. 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 OPERATIVE PROCEDURE: Upper GI endoscopy with dilation gastrojejunostomy ([id number]). ANESTHESIA: IV sedation. INDICATION FOR PROCEDURE: This is a 66-year-old presenting with probable recurrent stricturing at the gastrojejunostomy. The patient underwent a band conversion of Oscar-en-Y gastric bypass on 06/08/2017 and dilation was on 07/31/2017, presents now with some stricturing at the gastrojejunostomy once again and is undergoing upper GI endoscopy with dilation as indicated. Potential risks including bleeding and perforation were discussed, and the patient wishes to proceed. DETAILS OF THE PROCEDURE: The patient was taken to the operating room and placed in a left lateral decubitus position. IV sedation was administered, after which the upper GI endoscope was passed orally through the length of the esophagus, and into gastric pouch. The patient was noted to have a quite tight stricture of the gastrojejunostomy at this point, but without otherwise not much in the way of mucosal inflammation. Bard gastrointestinal balloon catheter was then centered across the anastomosis and inflated to 36-Japanese size. This was held in position for 1 minute after which the balloon catheter was deflated and withdrawn. The patient was noted to have what appeared to be a small tear on the left lateral aspect of the gastrojejunostomy. Otherwise no complications were evident. The scope was then withdrawn and the procedure concluded. The patient was taken to the recovery room in satisfactory condition. Bogdan Corea MD /[id number]
== END 2017-09-08 14:00 | disposition home or self-care (01) ==
LOC: JP.SDS 09:22
PROVIDERS: ATTEND Surgery
DX: K91.89 Other postprocedural complications and disorders of digestive system (principal); Z98.84 Bariatric surgery status
CPT/HCPCS: 43245; J2250; J2704; J3010; J3411; J3420; J7120; J3490

== ENCOUNTER 2017-10-27 08:24 | Day surgery (SDC) | payer MEDICARE, BC ==
[2017-10-27] MEDS ORDERED: Lactated Ringers 1,000 ML IV SCH (09:00)
[2017-10-27] MEDS ORDERED: Cyanocobalamin (Vitamin B12) 1,000 MCG/ML SDV IM ONE (09:30)
[2017-10-27] MEDS ORDERED: Glycopyrrolate 0.2 MG/ML 2 ML SDV IVPUSH ONE (09:30)
[2017-10-27] MEDS ORDERED: MVI, Adult with Vitamin K 10 ML, Thiamine 200 MG, Chromium/Copper/Mang/Selen/Zn 1 ML in... IV ONE ×4 (10:30)
[2017-10-27] MEDS ORDERED: fentaNYL 100 MCG/2 ML SDV ONE (10:47)
[2017-10-27] MEDS ORDERED: Propofol 200 MG/20 ML SDV ONE (10:47)
[2017-10-27] MEDS ORDERED: Midazolam 1 MG/ML 2 ML SDV ONE (10:47)
--- NOTE | 2017-11-02 13:31 | OR ---
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 OPERATIVE PROCEDURE: Upper GI endoscopy with dilation of gastrojejunostomy (01725). ANESTHESIA: IV sedation. 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 She has had some stricturing of her gastrojejunostomy with last dilation on 09/08/2017. She presents now with some recurrent symptoms of stricturing and plan is to proceed with an upper GI endoscopy with dilation as indicated. Potential risks including bleeding and perforation were discussed, and the patient wishes to proceed. DETAILS OF PROCEDURE: The patient was taken to the operating room and placed in a left lateral decubitus position. IV sedation was administered, after which the upper GI endoscope was passed orally through the length of the esophagus and into the gastric pouch. No retained food or fluid was noted. The patient was noted to have a moderate stricture at the gastrojejunostomy. Bard gastrointestinal balloon catheter was then centered across the anastomosis and inflated to 36-Armenian size. This was held in position for 1 minute, after which the balloon catheter was deflated and withdrawn. The scope could easily then be passed through the anastomosis. No complications were noted. The patient was taken to the recovery room in a satisfactory condition. Bogdan Corea MD /[id number]
== END 2017-10-27 12:50 | disposition home or self-care (01) ==
LOC: JP.SDS 08:24
PROVIDERS: ATTEND Surgery
DX: K91.89 Other postprocedural complications and disorders of digestive system (principal); J45.909 Unspecified asthma, uncomplicated; K21.9 Gastro-esophageal reflux disease without esophagitis; E03.9 Hypothyroidism, unspecified; E66.01 Morbid (severe) obesity due to excess calories; Z88.1 Allergy status to other antibiotic agents; Z88.2 Allergy status to sulfonamides; Z88.5 Allergy status to narcotic agent; Z88.8 Allergy status to other drugs, medicaments and biological substances
CPT/HCPCS: 43245; J2250; J2704; J3010; J3411; J3420; J7120; J3490

== ENCOUNTER 2018-09-23 09:55 | Day surgery (SDC) | payer MEDICARE, BC ==
[~2018-09-23 09:55] MED LIST changes: +Ketamine 500 MG/5 ML MDV IV SCH; -Scopolamine 1.5 MG Transdermal Patch TOP SCH
[2018-09-23] MEDS ORDERED: Neostigmine Methylsulfate 1 MG/ML 5 ML Syringe ONE (10:24)
[2018-09-23] MEDS ORDERED: Rocuronium 50 MG/5 ML Vial ONE (10:24)
[2018-09-23] MEDS ORDERED: Glycopyrrolate 0.2 MG/ML 5 ML MDV ONE (10:24)
[2018-09-23] MEDS ORDERED: Propofol 200 MG/20 ML SDV ONE (10:24)
[2018-09-23] MEDS ORDERED: Ondansetron 4 MG/2 ML SDV ONE (10:24)
[2018-09-23] MEDS ORDERED: Dexamethasone 4 MG/ML SDV ONE (10:24)
[2018-09-23] MEDS ORDERED: fentaNYL 250 MCG/5 ML SDV ONE (10:24)
[2018-09-23] MEDS ORDERED: Acetaminophen 500 MG Tab PO ONE (10:30)
[2018-09-23] MEDS: Dextrose 5%-Lactated Ringers 1,000 ML IV SCH ×2 (11:18→18:24)
[2018-09-23] MEDS ORDERED: cefOXitin 2 GM in Sodium Chloride 0.9% 50 ML IV ONE (11:30)
[2018-09-23] MEDS ORDERED: Bupivacaine 0.5%/EPINEPHrine 1:200,000 50 ML MDV ONE (12:17)
[2018-09-23] MEDS ORDERED: hydrOXYzine HCl 100 MG/2 ML SDV IM ONE (14:35)
[2018-09-23] MEDS ORDERED: fentaNYL 100 MCG/2 ML SDV IVPUSH ONE ×2 (14:38→14:57)
[2018-09-23] MEDS ORDERED: HYDROmorphone 0.5 MG/0.5 ML Syringe IVPUSH PRN (16:18)
[2018-09-23] MEDS ORDERED: HYDROmorphone 1 MG/ML Syringe IV PRN (16:18)
[2018-09-23] MEDS ORDERED: UNISOM 25 MG PO PRN (16:25)
[2018-09-23] MEDS ORDERED: Ondansetron 4 MG/2 ML SDV IVPUSH PRN (16:26)
[2018-09-23] MEDS ORDERED: Pantoprazole 40 MG Vial IVPUSH SCH (18:00)
[2018-09-23] MEDS ORDERED: diphenhydrAMINE 25 MG Cap PO PRN (18:08)
[2018-09-23] MEDS: cefOXitin 2 GM in Sodium Chloride 0.9% 50 ML IV SCH (19:56)
[2018-09-23] MEDS ORDERED: ClonazePAM 0.5 MG Tab PO SCH (21:00)
[2018-09-23] MEDS: Acetaminophen/HYDROcodone 325-5 MG Tab PO PRN (21:53)
[2018-09-24] MEDS: Acetaminophen/HYDROcodone 325-5 MG Tab PO PRN ×2 (02:20→07:28)
[2018-09-24] MEDS: cefOXitin 2 GM in Sodium Chloride 0.9% 50 ML IV SCH ×2 (02:21→07:29)
[2018-09-24] MEDS: Dextrose 5%-Lactated Ringers 1,000 ML IV SCH (05:28)
[2018-09-24] MEDS ORDERED: Levothyroxine 112 MCG Tab PO SCH (07:30)
--- NOTE | 2018-09-25 04:19 | DISCH ---
ADMISSION DIAGNOSES: Cholelithiasis, status post Oscar-en-Y gastric bypass surgery, unspecified surgical malabsorption, B12 deficiency, asthma, restless legs syndrome. DISCHARGE DIAGNOSES: Laparoscopic cholecystectomy and repair of incarcerated incisional hernia for chronic cholecystitis and cholelithiasis with incarcerated incisional umbilical hernia. DATE OF SURGERY: 09/23/2018. SURGEON: Bogdan Corea MD. HISTORY: Sylvia Bell is a 67-year-old female who has been having right upper quadrant abdominal pain. After preoperative evaluation, discussion of possible risks and possible complications, she wished to proceed with surgical procedure. HOSPITAL COURSE: Sylvia had a surgery on 09/23/2018. She had no operative complications. On postop day 1, she was able to be discharged to home. She was tolerating the diet well. Vital signs were stable and pain was well managed. Activity was good. PHYSICAL EXAMINATION: GENERAL: Sylvia Bell is a 67-year-old female, alert, orientated. VITAL SIGNS: Height is 5 feet 5 inches, weight 167 pounds. BMI is 27. TPR 96.3, 73, 16. Blood pressure 107/57. HEENT: Negative. NECK: Supple. HEART: Regular rate and rhythm. LUNGS: Clear. ABDOMEN: Dressings dry and intact. Abdominal binder is on. EXTREMITIES: Without peripheral edema. DISPOSITION: Discharged to home. CONDITION: Stable and improving. FOLLOWUP APPOINTMENT: 09/30/2018 at 10:15 a.m. HOME MEDICATIONS: [place] 1 q.6 hours p.r.n. pain, #30. She is to resume all of her home medications. DIET: Usual diet as tolerated. Drink 8-10 glasses of water a day. OTHER ACTIVITY: No lifting greater than 10 pounds for 2 weeks. Driving: Do not drive for 1 week and while on pain medication. Shower/bathing: May shower. DISCHARGE INSTRUCTIONS: Notify provider if any fever, increased pain, nausea, or vomiting. Keep site clean and dry. Wound incision care. Wear abdominal binder for 2 weeks and then as tolerated. Use incentive spirometer 10 times every hour while awake.
--- NOTE | 2018-09-27 09:25 | OR ---
DATE OF PROCEDURE: 09/23/2018 SURGEON: Bogdan Corea MD PREOPERATIVE DIAGNOSIS: Chronic cholecystitis and cholelithiasis. POSTOPERATIVE DIAGNOSES: 1. Chronic cholecystitis and cholelithiasis. 2. Incarcerated umbilical hernia. OPERATIVE PROCEDURE: Diagnostic laparoscopy with: 1. Cholecystectomy (51603). 2. Repair of incarcerated umbilical hernia (45710). ANESTHESIA: General. PIPE LINER: Jenna Neil PA-C. INDICATION FOR PROCEDURE: This is a 67-year-old presenting with some ongoing upper abdominal pain. Workup has included an ultrasound showing multiple gallstones. The patient's clinical presentation is highly suggestive of biliary colic. Given this, she is to undergo a cholecystectomy. In all likelihood, we should be able to do a laparoscopic approach since she has had a previous band conversion to Oscar-en-Y gastric bypass with a new channel. This should leave the area around the gallbladder ultimately free of any significant adhesions. Potential risks of the procedure including bleeding, infection, injury to the underlying viscera such as common bile duct, possibility of stones migrating into the common bile duct requiring additional procedures for correction, along with the possibility of cardiopulmonary, septic, or hemorrhagic complications leading to were discussed, and the patient wishes to proceed. DETAILS OF PROCEDURE: The patient was taken to the operating room and placed in a supine position. After general endotracheal anesthesia was induced, the abdomen was prepped and draped. An epigastric incision was then made, and the peritoneal cavity entered under direct vision with an Optiview trocar and inflated to 15 mmHg pressure with CO2. Laparoscope was re-inserted. No underlying trocar insertion site injuries were seen. Following this, the patient was noted to have a small non-reducible umbilical hernia. Incision was made just below the umbilicus and the dissection continued downward towards the hernia. A 12 mm trocar was then placed through the hernia defect, which revealed some incarcerated preperitoneal fat as the trocar was passed into the peritoneal cavity. A 5 mm trocar was placed in the right subcostal area as well. Bilateral transversus abdominis plane blocks were then placed and the upper abdomen examined. As expected, the patient was noted have a chronically inflamed gallbladder with some omental adhesions, which were taken down with Harmonic scalpel. The gallbladder was fairly distended and somewhat pichardo in appearance consistent with chronic cholecystitis. Gallbladder was retracted anterolaterally, and dissection began on the area of the gallbladder neck and continued around the gallbladder neck/cystic duct junction. This area was somewhat friable and enlarged. Given this, it was divided with MICHELLE stapler. The cystic artery was then clipped 3 times proximally and once distally and divided. The gallbladder was then dissected off the gallbladder bed using Harmonic scalpel and delivered through the epigastric trocar site. Off the field, the gallbladder was opened and contained innumerable small black stones. At this point, no further problems were noted, and a drain was felt not to be necessary. The camera port was then brought back up to the epigastric site, and the trocar through the umbilical hernia was removed. The fascial repair of the umbilical hernia was then accomplished with 3 sutures of 0 Vicryl stitch placed such that the closure was via transverse orientation. Once these were in place, the remaining trocars were removed and peritoneal cavity deflated. Both hernia sutures were tied, and the skin at each incision were closed with 4-0 Vicryl skin stitch. Dressing was applied. The patient was taken to the recovery room in satisfactory condition. Physician assistant manager retail, Jenna Neil, played an essential role in assisting in this case, helping to position the patient, retract structures as needed, as well as suturing and cutting sutures when indicated. Her presence improved patient safety and decreased the operative time. Bogdan Corea MD /[id number]
== END 2018-09-24 13:25 | disposition home or self-care (01) ==
LOC: JP.SDS 09:55 → JP.MS 14:30 → JP.SDS 09-24 13:25
PROVIDERS: ATTEND Surgery
DX: K80.10 Calculus of gallbladder with chronic cholecystitis without obstruction (principal); K42.0 Umbilical hernia with obstruction, without gangrene; K21.9 Gastro-esophageal reflux disease without esophagitis; K90.9 Intestinal malabsorption, unspecified; E53.8 Deficiency of other specified B group vitamins; G25.81 Restless legs syndrome; E78.5 Hyperlipidemia, unspecified; J45.909 Unspecified asthma, uncomplicated; F32.9 Major depressive disorder, single episode, unspecified; Z98.84 Bariatric surgery status
CPT/HCPCS: 36415; 47562; 82247; 84075; 85025; 88304; 94762; A9270; C9113; J0171; J0694; J1100; J1170; J2405; J2704; J2710; J2795; J3010; J3410; J3490; J7042; J7050

== ENCOUNTER 2020-07-29 12:15 | Day surgery (SDC) | payer MEDICARE ==
[2020-07-29] MEDS ORDERED: Sodium Chloride 0.9% 10 ML Syringe FLUSH PRN (12:23)
[2020-07-29] MEDS ORDERED: Lactated Ringers 1,000 ML IV SCH (12:30)
[2020-07-29 13:11] LABS: CORONAVIRUS COVID-19 NAA NEGATIVE (NEGATIVE)
[2020-07-29] MEDS ORDERED: Midazolam 1 MG/ML 2 ML SDV IV ONE (13:43)
[2020-07-29] MEDS ORDERED: Propofol 200 MG/20 ML SDV IV ONE (13:43)
[2020-07-29] MEDS ORDERED: fentaNYL 100 MCG/2 ML SDV IV ONE (13:43)
--- NOTE | 2020-07-30 10:59 | OR ---
DATE OF PROCEDURE: 07/29/2020 SURGEON: Damian Laws MD PROCEDURE: Esophagogastroduodenoscopy. FINDINGS: Slight narrowing of the gastrojejunal anastomosis. COMPLICATION: None. KENO MANAGER: None. ANESTHESIA: MAC. PREOPERATIVE DIAGNOSIS: Dysphagia. POSTOPERATIVE DIAGNOSIS: Dysphagia. RISKS: Risks, benefits, alternatives, and limitations including, but not limited to infection, bleeding, perforation, requirement for redilation, nausea, vomiting, and other risks not listed here were explained to the patient who wished to proceed. PROCEDURE IN DETAIL: The patient was placed in left lateral decubitus position. The EGD scope was introduced and advanced atraumatically to the gastroesophageal anastomosis. The patient was noted to have retained food material. The scope was able to be passed visually through and past this. The Oscar-en-Y limb was then entered without difficulty. This food material was able to be moved into the Oscar-en-Y limb. A 45-Monegasque balloon was then introduced and dilated to stage II. Of note, prior to dilation, the gastrojejunal anastomosis was greater than the scope and the scope could be directly passed through and was not blindly advanced at any time at that moment or during the procedure. The balloon was subsequently dilated. No abnormalities were noted after removal. The remainder of the material was moved into the esophagus. The patient tolerated the procedure well. Damian Laws MD /[id number]
== END 2020-07-29 16:04 | disposition home or self-care (01) ==
LOC: JP.SDS 12:15 → JP.MS 12:20 → JP.SDS 16:04
PROVIDERS: ATTEND Surgery
DX: T18.128A Food in esophagus causing other injury, initial encounter (principal); K22.2 Esophageal obstruction; I10 Essential (primary) hypertension; E78.00 Pure hypercholesterolemia, unspecified; E03.9 Hypothyroidism, unspecified; Z01.812 Encounter for preprocedural laboratory examination; Z20.822 Contact with and (suspected) exposure to COVID-19; Z88.2 Allergy status to sulfonamides; Z88.6 Allergy status to analgesic agent; Z88.8 Allergy status to other drugs, medicaments and biological substances; Z98.84 Bariatric surgery status
CPT/HCPCS: 0241U; 43249; J2250; J2704; J3010; J7120

== ENCOUNTER 2023-06-02 07:54 | Day surgery (SDC) | payer MEDICARE ==
[2023-06-02] MEDS ORDERED: Propofol 200 MG/20 ML SDV ONE (08:06)
[2023-06-02] MEDS ORDERED: fentaNYL 100 MCG/2 ML SDV ONE (08:06)
[2023-06-02] MEDS: Lactated Ringers 1,000 ML IV SCH (08:19)
[2023-06-02] MEDS: Cyanocobalamin (Vitamin B12) 1,000 MCG/ML SDV IM ONE (08:37)
[2023-06-02] MEDS: MVI, Adult with Vitamin K 10 ML, Thiamine 200 MG, Zinc/Copper/Manganese/Selenium 1 ML i... IV ONE (09:23)
== END 2023-06-02 11:19 | disposition home or self-care (01) ==
LOC: JP.SDS 07:54
PROVIDERS: ATTEND Surgery
DX: R13.10 Dysphagia, unspecified (principal); J45.909 Unspecified asthma, uncomplicated; K21.9 Gastro-esophageal reflux disease without esophagitis; Z98.84 Bariatric surgery status; Z87.891 Personal history of nicotine dependence; Z79.899 Other long term (current) drug therapy; Z88.2 Allergy status to sulfonamides; Z88.1 Allergy status to other antibiotic agents; Z88.5 Allergy status to narcotic agent; Z88.8 Allergy status to other drugs, medicaments and biological substances
CPT/HCPCS: 43249; C1726; J2704; J3010; J3411; J3420; J7120; J3490

== ENCOUNTER → 2023-06-27 | Day surgery (SDC) | payer MEDICARE ==
[~2023-06-27] MED LIST changes: -Ketamine 500 MG/5 ML MDV IV SCH; +Propofol 200 MG/20 ML SDV ONE; +Sodium Chloride 0.9% 10 ML Syringe FLUSH PRN; +fentaNYL 50 MCG/ML SDV ONE
[2023-06-27] MEDS: MVI, Adult with Vitamin K 10 ML, Thiamine 100 MG, Folic Acid 1 MG, Magnesium Sulfate 3 ... IV SCH (08:52)
== END ==
LOC: JP.ED 07:28 → JP.SDS 08:56
PROVIDERS: ATTEND Surgery
DX: R13.19 Other dysphagia (principal); E78.00 Pure hypercholesterolemia, unspecified; K21.9 Gastro-esophageal reflux disease without esophagitis; E03.9 Hypothyroidism, unspecified; Z90.710 Acquired absence of both cervix and uterus; Z79.899 Other long term (current) drug therapy; Z88.2 Allergy status to sulfonamides; Z88.8 Allergy status to other drugs, medicaments and biological substances; Z88.5 Allergy status to narcotic agent; Z88.1 Allergy status to other antibiotic agents
CPT/HCPCS: 43245; 96365; 96366; 99283; J2704; J3010; J3411; J3475; J7030; J3490